=== PATIENT | female | born 1975 | race Caucasian/White ===

== ENCOUNTER → 2023-08-18 17:56 | Outpatient (REF) | payer BC, SELFPAY | LOC: WDC 17:56 | PROVIDERS: ATTENDING PHYSICIAN Internal Medicine | DX: Z12.31 Encounter for screening mammogram for malignant neoplasm of breast (principal) | CPT/HCPCS: 77063; 77067 ==

== ENCOUNTER → 2024-01-20 10:49 | Outpatient (REF) | payer BC, SELFPAY | LOC: RAD 10:49 | PROVIDERS: ATTENDING PHYSICIAN Obstetrics & Gynecology Gynecology; FAMILY PHYSICIAN Nurse Practitioner | DX: T83.32XA Displacement of intrauterine contraceptive device, initial encounter (principal) | CPT/HCPCS: 76830; 76856 ==

== ENCOUNTER → 2024-03-21 08:50 | Outpatient (REF) | payer BC, SELFPAY | LOC: WDC 08:50 | PROVIDERS: ATTENDING PHYSICIAN Nurse Practitioner Adult Health; FAMILY PHYSICIAN Nurse Practitioner | DX: R92.2 Inconclusive mammogram (principal) | CPT/HCPCS: 76641 ==

== ENCOUNTER → 2024-08-20 18:30 | Outpatient (REF) | payer BC, SELFPAY | LOC: WDC 18:30 | PROVIDERS: ATTENDING PHYSICIAN Nurse Practitioner Adult Health; FAMILY PHYSICIAN Internal Medicine | DX: Z12.31 Encounter for screening mammogram for malignant neoplasm of breast (principal) | CPT/HCPCS: 77063; 77067 ==